=== PATIENT | female | born 1985 | race Caucasian/White ===

== ENCOUNTER 2018-06-11 16:16 | Emergency (ER) | payer SELFPAY ==
[2018-06-11 17:04] LABS: Absolute Lymphocytes (CBC) 1.1 K/uL (0.7-4.9); Absolute Monocytes 0.2 K/uL (0.1-1.3); Absolute Neutrophil 10.6 K/uL (1.8-8.0); Basophils % 0.1 % (0-1.3); Eosinophils % 0.1 % (0-4.4); Hematocrit 38.4 % (36.0-45.0); Lymphocytes % 8.8 % (15.3-44.8); RBC Red Blood Cell Count 4.26 M/uL (3.86-4.86)
[2018-06-11 17:06] LABS: Protime INR 1.03
[2018-06-11 17:32] LABS: ALT/SGPT 13 U/L (12-78); AST/SGOT 11 U/L (15-37); Albumin 3.9 g/dL (3.4-5.0); Alkaline Phosphatase 54 U/L (45-117); BUN Blood Urea Nitrogen 18 mg/dL (7-18); Bicarbonate 24 mmol/L (21-32); Bilirubin Direct < 0.1 mg/dL (0-0.2); Bilirubin Total 0.4 mg/dL (0.2-1.0); Glucose Level 115 mg/dL (74-106); Potassium 4.4 mmol/L (3.5-5.1); Protein, Total 7.7 g/dL (6.4-8.2); Sodium Level 138 mmol/L (136-145)
[2018-06-11 17:48] LABS: Barbiturates NEGATIVE (NEGATIVE); Benzodiazepines POSITIVE (NEGATIVE); Cocaine NEGATIVE (NEGATIVE); METHAMPHETAM NEGATIVE (NEGATIVE); Methadone NEGATIVE (NEGATIVE); Opiates POSITIVE (NEGATIVE); Phencyclidine NEGATIVE (NEGATIVE); THC Cannibis POSITIVE (NEGATIVE)
[2018-06-11 17:50] LABS: Blood Morphology Comment NOT SEEN (NOT SEEN); Platelet Estimate ADEQ; Urine White Blood Cell Casts OK
[2018-06-11 20:36] LABS: Urine Blood TRACE (NEG); Urine Glucose NEGATIVE (NEG); Urine Protein NEGATIVE (NEG); Urine pH 6.5 (5.0-7.0)
[2018-06-11] MEDS ORDERED: DERMABOND SKIN ADHESIVE TOP ONE (22:43)
[2018-06-12] MEDS ORDERED: DERMABOND SKIN ADHESIVE TOP ONE (00:34)
--- NOTE | 2018-06-12 07:23 | EKG ---
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
--- NOTE | 2018-06-12 22:19 | EDPHYS ---
Physician Documentation [facility] Name: Brandy Bailey Age: 33 yrs Sex: Female : 1985 Arrival Date: 06/11/2018 Time: 16:20 Bed 17 Private MD: None, None ED Physician William Galvan HPI: 06/11 17:15 This 33 yrs old Female presents to ER via Ambulatory with complaints of jr8 Suicidal Ideation, Wrist lacerations, Possible Overdose. 17:15 The patient presents to the emergency department with anxiety, depression, a history of jr8 a suicide gesture, where the patient cut wrists, where the patient took pills/medications, benzodiazepines, beta blockers, suicide ideation. Onset: The symptoms/episode began/occurred acutely, today, yesterday. Past psychiatric history: Prior diagnosis: bipolar disorder, depression. Associated signs and symptoms: The patient has no apparent associated signs or symptoms. Severity of symptoms: At their worst the symptoms were moderate in the emergency department the symptoms are unchanged. The patient has experienced similar episodes in the past, a few times. The patient has not recently seen a physician. Patient stated that she has been having racing thoughts about anything and everything. Stated that she cannot control them and now wants to kill herself. Took a bottle of xanax on Tuesday and metoprolol today along with cutting her right wrist to try and kill herself . 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 - Social history:: Smoking status: Patient/guardian denies using tobacco, Patient/guardian denies using alcohol, street drugs. - Ebola Screening: : No symptoms or risks identified at this time. ROS: 17:15 Eyes: Negative for injury, pain, redness, and discharge, ENT: Negative for injury, jr8 pain, and discharge, Neck: Negative for injury, pain, and swelling, Cardiovascular: Negative for chest pain, palpitations, and edema, Respiratory: Negative for shortness of breath, cough, wheezing, and pleuritic chest pain, Abdomen/GI: Negative for abdominal pain, nausea, vomiting, diarrhea, and constipation, Back: Negative for injury and pain, MS/Extremity: Negative for injury and deformity, Neuro: Negative for headache, weakness, numbness, tingling, and seizure. 17:15 Skin: Positive for laceration(s), of the right wrist. 17:15 Psych: Positive for anxiety, depression, suicide gesture, suicidal ideation. jr8 Exam: 17:15 Eyes: Pupils equal round and reactive to light, extra-ocular motions intact. Lids and jr8 lashes normal. Conjunctiva and sclera are non-icteric and not injected. Cornea within normal limits. Periorbital areas with no swelling, redness, or edema. ENT: Nares patent. No nasal discharge, no septal abnormalities noted. Tympanic membranes are normal and external auditory canals are clear. Oropharynx with no redness, swelling, or masses, exudates, or evidence of obstruction, uvula midline. Mucous membranes moist. Neck: Trachea midline, no thyromegaly or masses palpated, and no cervical lymphadenopathy. Supple, full range of motion without nuchal rigidity, or vertebral point tenderness. No Meningismus. Cardiovascular: Regular rate and rhythm with a normal S1 and S2. No gallops, murmurs, or rubs. Normal PMI, no JVD. No pulse deficits. Respiratory: Lungs have equal breath sounds bilaterally, clear to auscultation and percussion. No rales, rhonchi or wheezes noted. No increased work of breathing, no retractions or nasal flaring. Abdomen/GI: Soft, non-tender, with normal bowel sounds. No distension or tympany. No guarding or rebound. No evidence of tenderness throughout. Back: No spinal tenderness. No costovertebral tenderness. Full range of motion. MS/ Extremity: Pulses equal, no cyanosis. Neurovascular intact. Full, normal range of motion. Neuro: Awake and alert, GCS 15, oriented to person, place, time, and situation. Cranial nerves II-XII grossly intact. Motor strength 5/5 in all extremities. Sensory grossly intact. Cerebellar exam normal. Normal gait. 17:15 Skin: multiple lacerations that are mostly superficial noted to right ventral wrist. Bleeding controlled . 17:15 Psych: Behavior/mood is cooperative, anxious, suicidal, depressed, Affect is animated, Oriented to person, place, time, Patient having thoughts of suicide. Plan for suicide is see hpi Judgement / Insight is impaired. Memory is normal. Delusions/hallucinations are not present. Vital Signs: 16:34 BP 95 / 56; Pulse 67; Resp 18 S; Temp 97.0(TE); Pulse Ox 98% on R/A; Weight 58.97 kg aa5 (R); Height 5 ft. 9 in. (175.26 cm) (R); Pain 0/10; 17:30 BP 98 / 64; Pulse 62; Resp 11; Pulse Ox 98% ; bp 18:30 BP 95 / 59; Pulse 58; Resp 12; Pulse Ox 98% ; bp 19:30 BP 94 / 70; Pulse 69; Resp 15; Pulse Ox 99% ; rr5 20:30 BP 95 / 56; Pulse 67; Resp 16; Pulse Ox 99% ; rr5 21:13 BP 94 / 53; Pulse 68; Resp 18; Pulse Ox 97% ; ea 22:15 BP 96 / 58; Pulse 67; Resp 18; Pulse Ox 99% on R/A; ea 23:00 BP 93 / 54; Pulse 62; Resp 16; Pulse Ox 99% ; rr5 02/04 00:00 BP 97 / 64; Pulse 63; Resp 17; Pulse Ox 98% ; rr5 01:00 BP 96 / 60; Pulse 64; Resp 18; Pulse Ox 99% on R/A; ea 02:27 BP 95 / 64; Pulse 60; Resp 18; Pulse Ox 95% on R/A; ea 03:30 BP 96 / 55; Pulse 63; Resp 17 S; Pulse Ox 97% on R/A; cc3 04:03 BP 93 / 53; Pulse 65; Resp 17 S; Pulse Ox 98% on R/A; cc3 05:25 BP 96 / 53; Pulse 65; Resp 18 S; Pulse Ox 98% on R/A; cc3 06:11 BP 108 / 60; Pulse 68; Resp 18 S; Temp 98.2(T); Pulse Ox 100% on R/A; cc3 08:00 BP 108 / 69; Pulse 71; Resp 16; Temp 99.3(O); Pulse Ox 99% on R/A; dh3 12:00 BP 104 / 64; Pulse 57; Resp 16; Temp 97.9(O); Pulse Ox 98% on R/A; dh3 16:00 BP 106 / 67; Pulse 61; Resp 16; Temp 98.4(O); Pulse Ox 99% on R/A; Pain 2/10; dh3 22:00 BP 101 / 61; Pulse 84; Resp 16; Temp 98.9(O); Pulse Ox 98% on R/A; jb4 02 16:34 Body Mass Index 19.20 (58.97 kg, 175.26 cm) aa5 16:00 discomfort from laying in bed dh3 Laceration: 03:01 Wound Repair of 6cm ( 2.4in ) subcutaneous laceration to palmar aspect of left wrist. jr8 Linear shaped.. Distal neuro/vascular/tendon intact. Wound prep: Extensive cleansing with hibiclenz, Wound irrigation by veterinary technician, Wound explored extensively, Copious irrigation. Skin closed with 1 thin layer Adhesive skin closure using Dermabond. Patient tolerated well. 03:01 Wound Repair of 6cm ( 2.4in ) subcutaneous laceration to palmar aspect of left wrist. jr8 Linear shaped.. Minimal bleeding noted.. Distal neuro/vascular/tendon intact. Wound prep: Extensive cleansing with hibiclenz, Wound irrigation by veterinary technician, Wound explored extensively, Copious irrigation. Skin closed with 1 thin layer Adhesive skin closure using Dermabond. Patient tolerated well. 03:01 Wound Repair of 6cm ( 2.4in ) subcutaneous laceration to palmar aspect of left wrist. jr8 Linear shaped.. Distal neuro/vascular/tendon intact. Wound prep: Extensive cleansing with hibiclenz, Wound irrigation by veterinary technician, Wound explored extensively, Copious irrigation. Skin closed with 1 thin layer Adhesive skin closure using Dermabond. Patient tolerated well. 03:01 Wound Repair of 5cm ( 2.0in ) subcutaneous laceration to palmar aspect of left wrist. jr8 Linear shaped.. Distal neuro/vascular/tendon intact. Wound prep: Extensive cleansing with hibiclenz, Wound irrigation by veterinary technician, Wound explored extensively, Copious irrigation. Skin closed with 1 thin layer Adhesive skin closure using Dermabond. Patient tolerated well. 03:01 Wound Repair of 6cm ( 2.4in ) subcutaneous laceration to palmar aspect of left wrist. jr8 Linear shaped.. Distal neuro/vascular/tendon intact. Wound prep: Extensive cleansing with hibiclenz, Wound irrigation by veterinary technician, Wound explored extensively, Copious irrigation. Skin closed with 5 shiv Shiv using staple gun. Patient tolerated well. MDM: 06/11 16:36 Patient medically screened. 8 06/12 03:07 Data reviewed: vital signs, nurses notes, lab test result(s), EKG. Data interpreted: 8 Pulse oximetry: on room air is 95 %. Interpretation: normal. Counseling: I had a detailed discussion with the patient and/or guardian regarding: the historical points, exam findings, and any diagnostic results supporting the discharge/admit diagnosis, lab results. ED course: Patient doing well. VSS. Awaiting transfer to psych facility . 07:15 ED course: Pt sleeping comfortably, no acute distress, normal vitals, no signs of rn distress or signs of beta derek overdose at this time. Awaiting psychiatric transfer. . 22:15 ED course: pt not suicidal, will follow up, has boyfriend here to support her, he janeth agrees with the plan to follow up. 06/11 16:37 Order name: Acetaminophen; Complete Time: 17:48 [facility] 06/11 16:37 Order name: Basic Metabolic Panel; Complete Time: 17:48 [facility] 06/11 16:37 Order name: CBC with Diff; Complete Time: 17:53 [facility] 06/11 16:37 Order name: ETOH Level; Complete Time: 17:38 8 06/11 16:37 Order name: Hepatic Function; Complete Time: 17:48 [facility] 06/11 16:37 Order name: PT-INR; Complete Time: 17:10 8 06/11 16:37 Order name: Ptt, Activated; Complete Time: 17:10 [facility] 06/11 16:37 Order name: Salicylate; Complete Time: 17:48 [facility] 06/11 16:37 Order name: Urine Drug Screen; Complete Time: 17:53 8 06/11 16:37 Order name: EKG; Complete Time: 16:38 8 06/11 17:09 Order name: CBC Smear Scan; Complete Time: 17:53 [facility] 06/11 17:48 Order name: Urine Dipstick--Ancillary (enter results); Complete Time: 20:38 06/11 17:48 Order name: Urine --Ancillary (enter results); Complete Time: 20:38 06/12 05:50 Order name: Diet Regular; Complete Time: 05:51 rr5 06/11 16:37 Order name: Urine Test (obtain specimen); Complete Time: 19:13 8 06/11 16:37 Order name: EKG - Nurse/Tech; Complete Time: 17:14 06/11 16:37 Order name: IV Saline Lock; Complete Time: 17:14 8 06/11 16:37 Order name: Labs collected and sent; Complete Time: 17:14 06/11 16:37 Order name: Urine Dipstick-Ancillary (obtain specimen); Complete Time: 19:13 8 06/11 22:32 Order name: Dermabond; Complete Time: 22:34 ea 06/12 08:20 Order name: Diet Regular; Complete Time: 08:21 dh3 06/12 10:26 Order name: Diet Regular; Complete Time: 10:27 tw2 06/12 15:38 Order name: Diet Regular; Complete Time: 15:39 dh3 Administered Medications: No medications were administered Disposition: 22:15 Co-signature as Attending Physician, William Galvan MD I agree with the assessment and janeth plan of care. Disposition: 06/12/18 22:17 Discharged to Home. Impression: Bipolar disorder, Suicidal ideations - resolved. - Condition is Stable. - Discharge Instructions: Laceration Care, Adult, Bipolar Disorder, Suicidal Feelings: How to Help Yourself, Helping Someone Who is Suicidal, Laceration Care, Adult, [id number], Stress and Stress Management. - Medication Reconciliation Form, Thank You Letter, Antibiotic Education, Prescription Opioid Use, SBAR form form. - Follow up: Private Physician; When: 1 - 2 days; Reason: Recheck today's complaints, Continuance of care, Re-evaluation by your physician. - Problem is new. - Symptoms have improved. Signatures: Dispatcher [employer] William Loredo MD MD cha Nieto, Roman, MD MD rn Calderon, Audri, RN RN aa5 Dez Higgins PA PA jr8 Patel Sahh RN RN jb4 Olivia Tucker RN RN ea Corrections: (The following items were deleted from the chart) 22:42 22:17 06/12/2018 22:17 Discharged to Home. Impression: Bipolar disorder; Suicidal jb4 ideations - resolved. Condition is Stable. Forms are SBAR form, Medication Reconciliation Form, Thank You Letter, Antibiotic Education, Prescription Opioid Use. Follow up: Private Physician; When: 1 - 2 days; Reason: Recheck today's complaints, Continuance of care, Re-evaluation by your physician. Problem is new. Symptoms have improved. janeth
--- NOTE | 2018-06-12 22:19 | ER ---
Nurse's Notes [facility] Name: Brandy Bailey Age: 33 yrs Sex: Female : 1985 Arrival Date: 06/11/2018 Time: 16:20 Bed 17 Private MD: None, None Diagnosis: Bipolar disorder;Suicidal ideations-resolved Presentation: 06/11 16:27 Presenting complaint: Patient states: "I took a whole bottle of my dad's metoprolol aa5 this morning". Pt's boyfriend states "she also took 60 pills of alprazolam ER on Tuesday". Pt reports suicidal ideations. Pt reports cutting herself to right wrist today. 16:27 Transition of care: patient was not received from another setting of care. Onset of aa5 symptoms was June 11, 2018. Risk Assessment: Do you want to hurt yourself or someone else? Patient reports desire/thoughts of hurting themselves or someone else. Provider notified. Initial Sepsis Screen: Does the patient meet any 2 criteria? No. Patient's initial sepsis screen is negative. Does the patient have a suspected source of infection? No. Patient's initial sepsis screen is negative. Care prior to arrival: None. 16:27 Method Of Arrival: Ambulatory aa5 16:27 Acuity: ANA 2 aa5 Triage Assessment: 17:32 General: Appears distressed, comfortable, Behavior is cooperative, appropriate for age, bp anxious, crying. Pain: Denies pain. 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 - Social history:: Smoking status: Patient/guardian denies using tobacco, Patient/guardian denies using alcohol, street drugs. - Ebola Screening: : No symptoms or risks identified at this time. Screenin:43 Abuse screen: Denies threats or abuse. Denies injuries from another. Nutritional bp screening: No deficits noted. Tuberculosis screening: No symptoms or risk factors identified. Fall Risk None identified. Assessment: 16:30 General: Appears distressed, comfortable, slender, Behavior is cooperative, appropriate bp for age, anxious, crying. Pain: Denies pain. Neuro: Level of Consciousness is awake, obeys commands, lethargic, Oriented to person, place, time, situation, Appropriate for age. Cardiovascular: Rhythm is sinus rhythm. Respiratory: Airway is patent Respiratory effort is even, unlabored, Respiratory pattern is regular, symmetrical. GI: No signs and/or symptoms were reported involving the gastrointestinal system. : No signs and/or symptoms were reported regarding the genitourinary system. EENT: No deficits noted. Derm: No deficits noted. Musculoskeletal: Circulation, motion, and sensation intact. Range of motion: intact in all extremities. Injury Description: Laceration sustained to palmar aspect of left wrist. 17:30 Reassessment: PT REMAINS ON COLLISION MECHANIC, LETHARGIC. bp 17:51 Reassessment: CONTACT WITH POISON CONTROLPETE \\Cristina\\ MONIKA. RECOMMENDS FLUIDS AND bp SUPPORTIVE CARE WITH PRECAUTION FOR HYPOTENSION, BRADYCARDIA OR COMPUTER FORENSIC SPECIALIST DEPRESSION. . POISON CONTROL RECOMMENDS OBS FOR 8 HOURS OR UNTIL ASYMPTOMATIC. 19:00 Reassessment: PT SLEEPING, REMAINS NORMO-TENSIVE ON MONITOR. bp 19:10 General: Appears in no apparent distress. comfortable, Behavior is calm, cooperative, rr5 appropriate for age. Pain: Denies pain. 19:10 Reassessment: sitter at bedside. Neuro: Level of Consciousness is awake, alert, obeys rr5 commands, Oriented to person, place, time, situation, Appropriate for age. Cardiovascular: Capillary refill < 3 seconds Patient's skin is warm and dry. Rhythm is sinus rhythm. Respiratory: Airway is patent Respiratory effort is even, unlabored, Respiratory pattern is regular, symmetrical. GI: Patient currently denies abdominal pain. : No signs and/or symptoms were reported regarding the genitourinary system. EENT: No signs and/or symptoms were reported regarding the EENT system. Derm: Skin is intact, Skin temperature is warm cut wound on right wrist noted. Musculoskeletal: Circulation, motion, and sensation intact. Range of motion: intact in all extremities. 20:59 Reassessment: Patient and/or family updated on plan of care and expected duration. Pain ea level reassessed. Patient is alert, oriented x 3, equal unlabored respirations, skin warm/dry/pink. family remains at bedside. 21:58 Reassessment: Patient and/or family updated on plan of care and expected duration. Pain ea level reassessed. Pt resting with eyes closed, respirations even and unlabored. Chest expansions even and symmetrical. no s/s of pain or discomfort. Pt remains on registered nurse cardiac, family remains at bedside. 22:11 Reassessment: Poison control called for updates on pt's status. No new recommendations ea at this time. 22:38 Reassessment: Patient and/or family updated on plan of care and expected duration. Pain ea level reassessed. Patient is alert, oriented x 3, equal unlabored respirations, skin warm/dry/pink. Family at bedside. 23:15 Reassessment: Patient appears in no apparent distress at this time. Patient is alert, rr5 oriented x 3, equal unlabored respirations, skin warm/dry/pink. no complaints made. wound cleaning done by instructional technology facilitatoryoshi cool. 06/12 00:12 Reassessment: Patient and/or family updated on plan of care and expected duration. Pain ea level reassessed. Patient is alert, oriented x 3, equal unlabored respirations, skin warm/dry/pink. Family at bedside. 01:30 Reassessment: Patient and/or family updated on plan of care and expected duration. Pain ea level reassessed. Patient is alert, oriented x 3, equal unlabored respirations, skin warm/dry/pink. Family member at bedside. 02:26 Reassessment: Patient and/or family updated on plan of care and expected duration. Pain ea level reassessed. Patient is alert, oriented x 3, equal unlabored respirations, skin warm/dry/pink. Family member remains at bedside. 03:20 Reassessment: Patient appears in no apparent distress at this time. Patient and/or cc3 family updated on plan of care and expected duration. Pain level reassessed. Patient is alert, oriented x 3, equal unlabored respirations, skin warm/dry/pink. Received from trauma pod as a case of suicidal ideation with multiple wrist lacerations. With IV cannula gauge 22 at the left ACV saline locked. Family member at bedside. 04:07 Reassessment: Patient appears in no apparent distress at this time. Patient and/or cc3 family updated on plan of care and expected duration. Pain level reassessed. Patient is alert, oriented x 3, equal unlabored respirations, skin warm/dry/pink. family member at bedside. 05:52 Reassessment: Patient appears in no apparent distress at this time. Patient and/or cc3 family updated on plan of care and expected duration. Pain level reassessed. Patient is alert, oriented x 3, equal unlabored respirations, skin warm/dry/pink. Family member at bedside. 06:13 Reassessment: Patient appears in no apparent distress at this time. Patient and/or cc3 family updated on plan of care and expected duration. Pain level reassessed. Patient is alert, oriented x 3, equal unlabored respirations, skin warm/dry/pink. Family member at bedside. 07:11 Reassessment: Patient appears in no apparent distress at this time. Patient and/or tw2 family updated on plan of care and expected duration. Pain level reassessed. Patient is alert, oriented x 3, equal unlabored respirations, skin warm/dry/pink. pt appears to be sleeping at this time. 08:11 Reassessment: Patient appears in no apparent distress at this time. Patient and/or tw2 family updated on plan of care and expected duration. Pain level reassessed. Patient is alert, oriented x 3, equal unlabored respirations, skin warm/dry/pink. 09:11 Reassessment: Patient appears in no apparent distress at this time. Patient and/or tw2 family updated on plan of care and expected duration. Pain level reassessed. Patient is alert, oriented x 3, equal unlabored respirations, skin warm/dry/pink. 10:11 Reassessment: Patient appears in no apparent distress at this time. Patient and/or tw2 family updated on plan of care and expected duration. Pain level reassessed. Patient is alert, oriented x 3, equal unlabored respirations, skin warm/dry/pink. pt has visitor present at this time. 10:48 Reassessment: [facility] employee here for mental health evaluation. ss 10:54 Reassessment: [facility] business services sales representative at bedside at this time. tw2 11:11 Reassessment: Patient appears in no apparent distress at this time. Patient and/or tw2 family updated on plan of care and expected duration. Pain level reassessed. Patient is alert, oriented x 3, equal unlabored respirations, skin warm/dry/pink. 12:11 Reassessment: Patient appears in no apparent distress at this time. Patient and/or tw2 family updated on plan of care and expected duration. Pain level reassessed. Patient is alert, oriented x 3, equal unlabored respirations, skin warm/dry/pink. 13:11 Reassessment: Patient appears in no apparent distress at this time. No changes from tw2 previously documented assessment. Patient and/or family updated on plan of care and expected duration. Pain level reassessed. Patient is alert, oriented x 3, equal unlabored respirations, skin warm/dry/pink. 14:11 Reassessment: Patient appears in no apparent distress at this time. No changes from tw2 previously documented assessment. Patient and/or family updated on plan of care and expected duration. Pain level reassessed. Patient is alert, oriented x 3, equal unlabored respirations, skin warm/dry/pink. 15:11 Reassessment: Patient appears in no apparent distress at this time. No changes from tw2 previously documented assessment. Patient and/or family updated on plan of care and expected duration. Pain level reassessed. Patient is alert, oriented x 3, equal unlabored respirations, skin warm/dry/pink. 16:11 Reassessment: Patient appears in no apparent distress at this time. No changes from tw2 previously documented assessment. Patient and/or family updated on plan of care and expected duration. Pain level reassessed. Patient is alert, oriented x 3, equal unlabored respirations, skin warm/dry/pink. 17:11 Reassessment: Patient appears in no apparent distress at this time. No changes from tw2 previously documented assessment. Patient and/or family updated on plan of care and expected duration. Pain level reassessed. Patient is alert, oriented x 3, equal unlabored respirations, skin warm/dry/pink. 18:30 Reassessment: Patient appears in no apparent distress at this time. No changes from tw2 previously documented assessment. Patient and/or family updated on plan of care and expected duration. Pain level reassessed. Patient is alert, oriented x 3, equal unlabored respirations, skin warm/dry/pink. 19:00 Reassessment: Patient appears in no apparent distress at this time. Patient and/or jb4 family updated on plan of care and expected duration. Pain level reassessed. Patient is alert, oriented x 3, equal unlabored respirations, skin warm/dry/pink. 20:00 Reassessment: Patient appears in no apparent distress at this time. Patient and/or jb4 family updated on plan of care and expected duration. Pain level reassessed. Patient is alert, oriented x 3, equal unlabored respirations, skin warm/dry/pink. 21:00 Reassessment: Patient appears in no apparent distress at this time. Patient and/or jb4 family updated on plan of care and expected duration. Pain level reassessed. Patient is alert, oriented x 3, equal unlabored respirations, skin warm/dry/pink. 22:00 Reassessment: Patient appears in no apparent distress at this time. Patient and/or jb4 family updated on plan of care and expected duration. Pain level reassessed. Patient is alert, oriented x 3, equal unlabored respirations, skin warm/dry/pink. Psych: 06/11 16:30 Subjective: Patient's mood is sad, Delusions are denied, Hallucinations are denied bp Having thoughts of suicide. Plan for suicide is OVERDOSE. Objective: Patient is cooperative, using poor eye contact, Speech is soft, Affect is appropriate, Patient has mutilated themselves by SUPERFICIAL WRIST LAC. Interventions: Removed personal items and placed in bag. Patient placed in hospital gown. Searched person for dangerous items. Urine collected and sent for urine drug test. Suicide Risk Assessment: Sad Person Scale: Sex of patient: Female: Score 0 points. Age of patient: Score 0 point if patient falls outside of specified age parameters. Depression: Score 1 point if signs of depression are present. Previous Attempt: Score 1 point if patient has previously attempted suicide. Substance Abuse: Score 0 point if patient does not abuse alcohol or drugs. Rational Thinking: Score 0 point if patient has rational thinking. Social Support: Score 0 if social support is present/available. Organized Plan: Score 1 point if patient had a plan in place. Relationship: Score 0 point if patient has a spouse or domestic partner. Chronic Sickness: Score 0 point if patient does not have a chronic illness, debilitating, or severe disorder. TOTAL POINTS: If total points are 0-2, proposed clinical action is to send home with follow-up. Safety Checks: Personal items have been removed. Door is open. Visitors are present. Pt denies substance abuse. Commitment: Patient will be a voluntary commitment. 16:45 Safety Checks: Personal items have been removed. Door is open. Visitors are present. bp 17:00 Safety Checks: Personal items have been removed. Door is open. Visitors are present. bp 17:15 Safety Checks: Personal items have been removed. Door is open. Visitors are present. bp 17:30 Safety Checks: Personal items have been removed. Door is open. Visitors are present. bp 17:45 Safety Checks: Personal items have been removed. Door is open. Visitors are present. bp Safety Checks: Personal items have been removed. Door is open. Visitors are present. 18:00 Safety Checks: Personal items have been removed. Door is open. Visitors are present. bp 18:15 Safety Checks: Personal items have been removed. Door is open. Visitors are present. bp 18:30 Safety Checks: Personal items have been removed. Door is open. Visitors are present. bp 18:45 Safety Checks: Personal items have been removed. Door is open. Visitors are present. bp 19:00 Safety Checks: Personal items have been removed. Door is open. Visitors are present. bp Vital Signs: 16:34 BP 95 / 56; Pulse 67; Resp 18 S; Temp 97.0(TE); Pulse Ox 98% on R/A; Weight 58.97 kg aa5 (R); Height 5 ft. 9 in. (175.26 cm) (R); Pain 0/10; 17:30 BP 98 / 64; Pulse 62; Resp 11; Pulse Ox 98% ; bp 18:30 BP 95 / 59; Pulse 58; Resp 12; Pulse Ox 98% ; bp 19:30 BP 94 / 70; Pulse 69; Resp 15; Pulse Ox 99% ; rr5 20:30 BP 95 / 56; Pulse 67; Resp 16; Pulse Ox 99% ; rr5 21:13 BP 94 / 53; Pulse 68; Resp 18; Pulse Ox 97% ; ea 22:15 BP 96 / 58; Pulse 67; Resp 18; Pulse Ox 99% on R/A; ea 23:00 BP 93 / 54; Pulse 62; Resp 16; Pulse Ox 99% ; rr5 02/04 00:00 BP 97 / 64; Pulse 63; Resp 17; Pulse Ox 98% ; rr5 01:00 BP 96 / 60; Pulse 64; Resp 18; Pulse Ox 99% on R/A; ea 02:27 BP 95 / 64; Pulse 60; Resp 18; Pulse Ox 95% on R/A; ea 03:30 BP 96 / 55; Pulse 63; Resp 17 S; Pulse Ox 97% on R/A; cc3 04:03 BP 93 / 53; Pulse 65; Resp 17 S; Pulse Ox 98% on R/A; cc3 05:25 BP 96 / 53; Pulse 65; Resp 18 S; Pulse Ox 98% on R/A; cc3 06:11 BP 108 / 60; Pulse 68; Resp 18 S; Temp 98.2(T); Pulse Ox 100% on R/A; cc3 08:00 BP 108 / 69; Pulse 71; Resp 16; Temp 99.3(O); Pulse Ox 99% on R/A; dh3 12:00 BP 104 / 64; Pulse 57; Resp 16; Temp 97.9(O); Pulse Ox 98% on R/A; dh3 16:00 BP 106 / 67; Pulse 61; Resp 16; Temp 98.4(O); Pulse Ox 99% on R/A; Pain 2/10; dh3 22:00 BP 101 / 61; Pulse 84; Resp 16; Temp 98.9(O); Pulse Ox 98% on R/A; jb4 06/11 16:34 Body Mass Index 19.20 (58.97 kg, 175.26 cm) aa5 16:00 discomfort from laying in bed 3 ED Course: 06/11 16:20 Patient arrived in ED. mr 16:20 None, None is Private Physician. mr 16:28 Arm band placed on. aa5 16:30 Patient has correct armband on for positive identification. Bed in low position. Call bp light in reach. Side rails up X2. Adult w/ patient. 16:30 Inserted saline lock: 20 gauge in left antecubital area, using aseptic technique. Blood bp collected. 16:33 Triage completed. aa5 16:36 Dez Higgins PA is PHCP. jr8 16:36 William Galvan MD is Attending Physician. jr8 16:37 Steve Brower, BERNA is Primary Nurse. bp 19:00 Safety Checks: Personal items have been removed. The door is open or patient has been ea placed in a hallway bed/chair. A family member and/or friend is present and encouraged to stay. Sitter present at this time. 19:15 Safety Checks: Personal items have been removed. The door is open or patient has been ea placed in a hallway bed/chair. A family member and/or friend is present and encouraged to stay. Sitter present at this time. 19:30 Safety Checks: Personal items have been removed. The door is open or patient has been ea placed in a hallway bed/chair. A family member and/or friend is present and encouraged to stay. Sitter present at this time. 19:45 Safety Checks: Personal items have been removed. The door is open or patient has been ea placed in a hallway bed/chair. A family member and/or friend is present and encouraged to stay. Sitter present at this time. 20:00 Safety Checks: Personal items have been removed. The door is open or patient has been ea placed in a hallway bed/chair. A family member and/or friend is present and encouraged to stay. Sitter present at this time. 20:15 Safety Checks: Personal items have been removed. The door is open or patient has been ea placed in a hallway bed/chair. A family member and/or friend is present and encouraged to stay. Sitter present at this time. 20:30 Safety Checks: Personal items have been removed. The door is open or patient has been ea placed in a hallway bed/chair. A family member and/or friend is present and encouraged to stay. Sitter present at this time. 20:45 Safety Checks: Personal items have been removed. The door is open or patient has been ea placed in a hallway bed/chair. A family member and/or friend is present and encouraged to stay. Sitter present at this time. 21:00 Safety Checks: Personal items have been removed. The door is open or patient has been ea placed in a hallway bed/chair. A family member and/or friend is present and encouraged to stay. Sitter present at this time. 21:15 Safety Checks: Personal items have been removed. The door is open or patient has been ea placed in a hallway bed/chair. A family member and/or friend is present and encouraged to stay. Sitter present at this time. 21:30 Safety Checks: Personal items have been removed. The door is open or patient has been ea placed in a hallway bed/chair. A family member and/or friend is present and encouraged to stay. Sitter present at this time. 21:45 Safety Checks: Personal items have been removed. The door is open or patient has been ea placed in a hallway bed/chair. A family member and/or friend is present and encouraged to stay. Sitter present at this time. 21:47 faxed patient's clinicals to all of the [facility]. mw2 22:00 Safety Checks: Personal items have been removed. The door is open or patient has been ea placed in a hallway bed/chair. A family member and/or friend is present and encouraged to stay. Sitter present at this time. 22:15 Safety Checks: Personal items have been removed. The door is open or patient has been ea placed in a hallway bed/chair. A family member and/or friend is present and encouraged to stay. Sitter present at this time. 22:30 Safety Checks: Personal items have been removed. The door is open or patient has been ea placed in a hallway bed/chair. A family member and/or friend is present and encouraged to stay. Sitter present at this time. 22:45 Safety Checks: Personal items have been removed. The door is open or patient has been rr5 placed in a hallway bed/chair. A family member and/or friend is present and encouraged to stay. Sitter present at this time. 23:00 Safety Checks: Personal items have been removed. The door is open or patient has been rr5 placed in a hallway bed/chair. A family member and/or friend is present and encouraged to stay. Sitter present at this time. 23:15 Safety Checks: Personal items have been removed. The door is open or patient has been rr5 placed in a hallway bed/chair. A family member and/or friend is present and encouraged to stay. Sitter present at this time. 23:30 Safety Checks: Personal items have been removed. The door is open or patient has been rr5 placed in a hallway bed/chair. A family member and/or friend is present and encouraged to stay. Sitter present at this time. 23:45 Safety Checks: Personal items have been removed. The door is open or patient has been rr5 placed in a hallway bed/chair. A family member and/or friend is present and encouraged to stay. Sitter present at this time. 06/12 00:00 Safety Checks: Personal items have been removed. The door is open or patient has been rr5 placed in a hallway bed/chair. A family member and/or friend is present and encouraged to stay. Sitter present at this time. 00:15 Safety Checks: Personal items have been removed. The door is open or patient has been ea placed in a hallway bed/chair. A family member and/or friend is present and encouraged to stay. Sitter present at this time. 00:30 Safety Checks: Personal items have been removed. The door is open or patient has been ea placed in a hallway bed/chair. A family member and/or friend is present and encouraged to stay. Sitter present at this time. 00:45 Safety Checks: Personal items have been removed. The door is open or patient has been ea placed in a hallway bed/chair. A family member and/or friend is present and encouraged to stay. Sitter present at this time. 01:00 Safety Checks: Personal items have been removed. The door is open or patient has been ea placed in a hallway bed/chair. A family member and/or friend is present and encouraged to stay. Sitter present at this time. 01:15 Safety Checks: Personal items have been removed. The door is open or patient has been ea placed in a hallway bed/chair. A family member and/or friend is present and encouraged to stay. Sitter present at this time. 01:30 Safety Checks: Personal items have been removed. The door is open or patient has been ea placed in a hallway bed/chair. A family member and/or friend is present and encouraged to stay. Sitter present at this time. 01:45 Safety Checks: Personal items have been removed. The door is open or patient has been ea placed in a hallway bed/chair. A family member and/or friend is present and encouraged to stay. Sitter present at this time. 02:00 Safety Checks: Personal items have been removed. The door is open or patient has been ea placed in a hallway bed/chair. A family member and/or friend is present and encouraged to stay. Sitter present at this time. 02:15 Safety Checks: Personal items have been removed. The door is open or patient has been ea placed in a hallway bed/chair. A family member and/or friend is present and encouraged to stay. Sitter present at this time. 02:30 Safety Checks: Personal items have been removed. The door is open or patient has been rr5 placed in a hallway bed/chair. A family member and/or friend is present and encouraged to stay. Sitter present at this time. 02:45 Safety Checks: Personal items have been removed. The door is open or patient has been rr5 placed in a hallway bed/chair. A family member and/or friend is present and encouraged to stay. Sitter present at this time. 03:00 Safety Checks: Personal items have been removed. The door is open or patient has been rr5 placed in a hallway bed/chair. A family member and/or friend is present and encouraged to stay. Sitter present at this time. 03:05 Assist provider with laceration repair on dorsal aspect of right forearm that was ea between 2.6 to 7.5 cm Set up tray. Performed by Dez LANDEROS Dressed with non adherent dressing wrapped in kerlix Patient tolerated well. first lac proximal repaired with staple method x [address], derma moctezuma used on rest of the lacerations x 4. 03:15 Safety Checks: Personal items have been removed. The door is open or patient has been rr5 placed in a hallway bed/chair. A family member and/or friend is present and encouraged to stay. Sitter present at this time. 03:30 Safety checks: Items removed: yes. Door open/sign placed on door: yes. Family/friend ar5 present: yes. Sitter present: Yes. 03:31 Breanne from [facility] called to check on the status of patient. case #[id number]. [email or web address] 03:45 Safety checks: Items removed: yes. Door open/sign placed on door: yes. Family/friend ar5 present: yes. Sitter present: Yes. 04:00 Safety checks: Items removed: yes. Door open/sign placed on door: yes. Family/friend ar5 present: yes. Sitter present: Yes. 04:15 Safety checks: Items removed: yes. Door open/sign placed on door: yes. Family/friend ar5 present: yes. Sitter present: Yes. 04:30 Safety checks: Items removed: yes. Door open/sign placed on door: yes. Family/friend ar5 present: yes. Sitter present: Yes. 04:45 Safety checks: Items removed: yes. Door open/sign placed on door: yes. Family/friend ar5 present: yes. Sitter present: Yes. 05:00 Safety checks: Items removed: yes. Door open/sign placed on door: yes. Family/friend ar5 present: yes. Sitter present: Yes. 05:15 Safety checks: Items removed: yes. Door open/sign placed on door: yes. Family/friend ar5 present: yes. Sitter present: Yes. 05:30 Safety checks: Items removed: yes. Door open/sign placed on door: yes. Family/friend ar5 present: yes. Sitter present: Yes. 05:45 Safety checks: Items removed: yes. Door open/sign placed on door: yes. Family/friend ar5 present: yes. Sitter present: Yes. 06:00 Safety checks: Items removed: yes. Door open/sign placed on door: yes. Family/friend ar5 present: yes. Sitter present: Yes. 06:15 Safety checks: Items removed: yes. Door open/sign placed on door: yes. Family/friend ar5 present: yes. Sitter present: Yes. 06:30 Safety checks: Items removed: yes. Door open/sign placed on door: yes. Family/friend ar5 present: yes. Sitter present: Yes. 06:45 Safety checks: Items removed: yes. Door open/sign placed on door: yes. Family/friend ar5 present: yes. Sitter present: Yes. 07:00 Safety Checks: Personal items have been removed. The door is open or patient has been tw2 placed in a hallway bed/chair. A family member and/or friend is present and encouraged to stay. Sitter present at this time. 07:00 Report given to BERNA Michele. cc3 07:10 Primary Nurse role handed off by Steve Brower RN tw2 07:10 Emily Clark RN is Primary Nurse. tw2 07:15 Safety Checks: Personal items have been removed. The door is open or patient has been tw2 placed in a hallway bed/chair. A family member and/or friend is present and encouraged to stay. Sitter present at this time. 07:30 Safety checks: Items removed: yes. Door open/sign placed on door: yes. Family/friend dh3 present: no. Sitter present: Yes. 07:45 Safety checks: Items removed: yes. Door open/sign placed on door: yes. Family/friend dh3 present: no. Sitter present: Yes. 08:00 Safety checks: Items removed: yes. Door open/sign placed on door: yes. Family/friend dh3 present: no. Sitter present: Yes. 08:15 Safety Checks: Personal items have been removed. The door is open or patient has been tw2 placed in a hallway bed/chair. A family member and/or friend is present and encouraged to stay. Sitter present at this time. 08:15 Safety checks: Items removed: yes. Door open/sign placed on door: yes. Family/friend dh3 present: no. Sitter present: Yes. 08:30 Safety Checks: Personal items have been removed. The door is open or patient has been tw2 placed in a hallway bed/chair. A family member and/or friend is present and encouraged to stay. Sitter present at this time. 08:30 Safety checks: Items removed: yes. Door open/sign placed on door: yes. Family/friend dh3 present: no. Sitter present: Yes. 08:45 Safety checks: Items removed: yes. Door open/sign placed on door: yes. Family/friend dh3 present: no. Sitter present: Yes. 09:00 Safety checks: Items removed: yes. Door open/sign placed on door: yes. Family/friend dh3 present: no. Sitter present: Yes. 09:15 Safety checks: Items removed: yes. Door open/sign placed on door: yes. Family/friend dh3 present: no. Sitter present: Yes. 09:30 Safety checks: Items removed: yes. Door open/sign placed on door: yes. Family/friend dh3 present: no. Sitter present: Yes. 09:45 Safety checks: Items removed: yes. Door open/sign placed on door: yes. Family/friend dh3 present: yes. Family/friends encouraged to stay with patient. Sitter present: Yes. 10:00 Safety checks: Items removed: yes. Door open/sign placed on door: yes. Family/friend dh3 present: yes. Family/friends encouraged to stay with patient. Sitter present: Yes. 10:15 Safety checks: Items removed: yes. Door open/sign placed on door: yes. Family/friend dh3 present: yes. Family/friends encouraged to stay with patient. Sitter present: Yes. 10:30 Safety checks: Items removed: yes. Door open/sign placed on door: yes. Family/friend dh3 present: yes. Family/friends encouraged to stay with patient. Sitter present: Yes. 10:45 Safety checks: Items removed: yes. Door open/sign placed on door: yes. Family/friend dh3 present: yes. Family/friends encouraged to stay with patient. Sitter present: Yes. 11:00 Safety checks: Items removed: yes. Door open/sign placed on door: yes. Family/friend dh3 present: no. Sitter present: Yes. 11:15 Safety checks: Items removed: yes. Door open/sign placed on door: yes. Family/friend dh3 present: no. Sitter present: Yes. 11:30 Safety checks: Items removed: yes. Door open/sign placed on door: yes. Family/friend dh3 present: no. Sitter present: Yes. 11:45 Safety checks: Items removed: yes. Door open/sign placed on door: yes. Family/friend dh3 present: yes. Family/friends encouraged to stay with patient. Sitter present: Yes. 12:00 Safety checks: Items removed: yes. Door open/sign placed on door: yes. Family/friend dh3 present: yes. Family/friends encouraged to stay with patient. Sitter present: Yes. 12:15 Safety checks: Items removed: yes. Door open/sign placed on door: yes. Family/friend dh3 present: yes. Family/friends encouraged to stay with patient. Sitter present: Yes. 12:30 Safety checks: Items removed: yes. Door open/sign placed on door: yes. Family/friend dh3 present: yes. Family/friends encouraged to stay with patient. Sitter present: Yes. 12:45 Safety checks: Items removed: yes. Door open/sign placed on door: yes. Family/friend dh3 present: yes. Family/friends encouraged to stay with patient. Sitter present: Yes. 13:00 Safety checks: Items removed: yes. Door open/sign placed on door: yes. Family/friend dh3 present: yes. Family/friends encouraged to stay with patient. Sitter present: Yes. 13:15 Safety checks: Items removed: yes. Door open/sign placed on door: yes. Family/friend dh3 present: no. Sitter present: Yes. 13:30 Safety checks: Items removed: yes. Door open/sign placed on door: yes. Family/friend dh3 present: yes. Family/friends encouraged to stay with patient. Sitter present: Yes. 13:45 Safety checks: Items removed: yes. Door open/sign placed on door: yes. Family/friend dh3 present: yes. Family/friends encouraged to stay with patient. Sitter present: Yes. 14:00 Safety checks: Items removed: yes. Door open/sign placed on door: yes. Family/friend dh3 present: yes. Family/friends encouraged to stay with patient. Sitter present: Yes. 14:15 Safety checks: Items removed: yes. Door open/sign placed on door: yes. Family/friend dh3 present: yes. Family/friends encouraged to stay with patient. Sitter present: Yes. 14:20 spoke with [facility], chart is still under review. 14:30 Safety checks: Items removed: yes. Door open/sign placed on door: yes. Family/friend dh3 present: yes. Family/friends encouraged to stay with patient. Sitter present: Yes. 14:45 Safety checks: Items removed: yes. Door open/sign placed on door: yes. Family/friend dh3 present: yes. Family/friends encouraged to stay with patient. Sitter present: Yes. 15:00 Safety checks: Items removed: yes. Door open/sign placed on door: yes. Family/friend dh3 present: yes. Family/friends encouraged to stay with patient. Sitter present: Yes. 15:15 Safety checks: Items removed: yes. Door open/sign placed on door: yes. Family/friend dh3 present: yes. Family/friends encouraged to stay with patient. Sitter present: Yes. 15:30 Safety checks: Items removed: yes. Door open/sign placed on door: yes. Family/friend dh3 present: yes. Family/friends encouraged to stay with patient. Sitter present: Yes. 15:45 Safety checks: Items removed: yes. Door open/sign placed on door: yes. Family/friend dh3 present: yes. Family/friends encouraged to stay with patient. Sitter present: Yes. 16:00 Safety checks: Items removed: yes. Door open/sign placed on door: yes. Family/friend dh3 present: yes. Family/friends encouraged to stay with patient. Sitter present: Yes. 16:15 Safety checks: Items removed: yes. Door open/sign placed on door: yes. Family/friend dh3 present: yes. Family/friends encouraged to stay with patient. Sitter present: Yes. 16:30 Safety checks: Items removed: yes. Door open/sign placed on door: yes. Family/friend dh3 present: yes. Family/friends encouraged to stay with patient. Sitter present: Yes. 16:45 Safety checks: Items removed: yes. Door open/sign placed on door: yes. Family/friend dh3 present: yes. Family/friends encouraged to stay with patient. Sitter present: Yes. 16:58 refaxed the chart to [facility], talked to vijaya, pt is on waiting list. bd 17:00 Safety checks: Items removed: yes. Door open/sign placed on door: yes. Family/friend dh3 present: yes. Family/friends encouraged to stay with patient. Sitter present: Yes. 17:15 Safety checks: Items removed: yes. Door open/sign placed on door: yes. Family/friend dh3 present: yes. Family/friends encouraged to stay with patient. Sitter present: Yes. 17:30 Safety checks: Items removed: yes. Door open/sign placed on door: yes. Family/friend dh3 present: yes. Family/friends encouraged to stay with patient. Sitter present: Yes. 17:45 Safety checks: Items removed: yes. Door open/sign placed on door: yes. Family/friend dh3 present: yes. Family/friends encouraged to stay with patient. Sitter present: Yes. 18:00 Safety checks: Items removed: yes. Door open/sign placed on door: yes. Family/friend dh3 present: yes. Family/friends encouraged to stay with patient. Sitter present: Yes. 18:15 Safety Checks: Personal items have been removed. The door is open or patient has been tw2 placed in a hallway bed/chair. Sitter present at this time. Safety Checks: A family member and/or friend is present and encouraged to stay. 18:30 Safety Checks: Personal items have been removed. The door is open or patient has been tw2 placed in a hallway bed/chair. A family member and/or friend is present and encouraged to stay. Sitter present at this time. 18:31 talked to Ambrosio at [facility], chart is under review, possible discharges in bd the morning. 18:45 Safety Checks: Personal items have been removed. The door is open or patient has been tw2 placed in a hallway bed/chair. A family member and/or friend is present and encouraged to stay. Sitter present at this time. 19:00 Safety Checks: Personal items have been removed. The door is open or patient has been tw2 placed in a hallway bed/chair. A family member and/or friend is present and encouraged to stay. Sitter present at this time. 19:00 Safety checks: Items removed: yes. Door open/sign placed on door: yes. Family/friend dh3 present: yes. Family/friends encouraged to stay with patient. Sitter present: Yes. 19:03 Report given to BERNA Perez. tw2 19:04 Primary Nurse role handed off by Emily Clark RN tw2 19:15 Patel Shah, RN is Primary Nurse. jb4 22:00 IV discontinued, intact, bleeding controlled. jb4 Administered Medications: No medications were administered Outcome: 22:17 Discharge ordered by . janeth 22:42 Discharged to home ambulatory, with significant other. jb4 22:42 Condition: stable 22:42 Discharge instructions given to patient, significant other, Instructed on discharge instructions, follow up and referral plans. Demonstrated understanding of instructions, follow-up care. 22:42 Patient left the ED. jb4 Signatures: Bambi Jose Corey, MD MD cha Rivera, Mary mr Rooney, Bertha, RN RN aa5 Annette Mann RN Dez Goodwin, LETI PA jr8 Emily Clark RN RN tw2 Patel Shah, BERNA RN jb4 Stefany Ott 3 Olivia Tucker RN RN ea Peltier, Brian RN BERNA bp Maritza Wells 2 Beatrice Wilson 3 Pierre Driscoll RN RN liz5 Funmilayo Alvarenga ar5 Corrections: (The following items were deleted from the chart) 06/11 21:17 19:10 Derm: Skin is intact, Skin temperature is warm rr5 rr5 06/12 03:45 03:41 Safety checks: Items removed: yes. Door open/sign placed on door: yes. ar5 Family/friend present: yes. Sitter present: Yes. ar5 04:09 03:30 Reassessment: Patient appears in no apparent distress at this time. Patient cc3 and/or family updated on plan of care and expected duration. Pain level reassessed. Patient is alert, oriented x 3, equal unlabored respirations, skin warm/dry/pink. family member at bedside. cc3 06:14 06:13 Reassessment: Patient appears in no apparent distress at this time. Patient cc3 and/or family updated on plan of care and expected duration. Pain level reassessed. Patient is alert, oriented x 3, equal unlabored respirations, skin warm/dry/pink. Patient at bedside cc3 10:38 09:45 Safety checks: Items removed: yes. Door open/sign placed on door: yes. dh3 Family/friend present: yes. Sitter present: Yes. 3 10:39 10:00 Safety checks: Items removed: yes. Door open/sign placed on door: yes. dh3 Family/friend present: yes. Sitter present: Yes. 3 10:41 10:15 Safety checks: Items removed: yes. Door open/sign placed on door: yes. dh3 Family/friend present: no. Sitter present: Yes. 3 10:42 10:30 Safety checks: Items removed: yes. Door open/sign placed on door: yes. dh3 Family/friend present: no. Sitter present: Yes. 3 10:45 10:34 Safety checks: Items removed: yes. Door open/sign placed on door: yes. dh3 Family/friend present: yes. Family/friends encouraged to stay with patient. Sitter present: Yes. 3 13:03 13:00 Safety checks: Items removed: yes. Door open/sign placed on door: yes. dh3 Family/friend present: no. Sitter present: Yes. 3
[2018-06-12 23:29] VITALS: BP 101/61; TEMP 98.9; O2SAT 98
== END 2018-06-12 22:42 | disposition home or self-care (01) ==
LOC: ER 16:16
PROC: 0JQH0ZZ Repair Left Lower Arm Subcutaneous Tissue and Fascia, Open Approach (ICD-10-PCS; principal; 2018-06-12)
DX: T42.4X2A Poisoning by benzodiazepines, intentional self-harm, initial encounter (principal); F31.9 Bipolar disorder, unspecified; S61.512A Laceration without foreign body of left wrist, initial encounter; X83.8XXA Intentional self-harm by other specified means, initial encounter; Y93.9 Activity, unspecified; Y92.9 Unspecified place or not applicable
CPT/HCPCS: 36415; 80048; 80076; 80307; 80320; 80329; 81003; 81025; 85025; 85610; 85730; 93005; 99285

== ENCOUNTER 2019-05-03 16:01 | Emergency (ER) | payer BC, OTHER ==
--- NOTE | 2019-05-03 18:06 | ER ---
Nurse's Notes [facility] Name: Brandy Bailey Age: 34 yrs Sex: Female : 1985 Arrival Date: 05/03/2019 Time: 16:04 Bed 30 Private MD: Diagnosis: Acute upper respiratory infection, unspecified Presentation: 05/03 16:27 Presenting complaint: Patient states: body aches, ear ache, sinus drainage since 04/30. sr5 Pt is 28 weeks , , no complications thus far. Taking Robitussin and Tylenol OTC. Reports 2 coworkers have the flu. Transition of care: patient was not received from another setting of care. Onset of symptoms was April 30, 2019. Care prior to arrival: Medication(s) given: Tylenol. 16:27 Method Of Arrival: Ambulatory 5 16:27 Acuity: ANA 4 sr5 17:43 Risk Assessment: Do you want to hurt yourself or someone else? Patient reports no rb1 desire to harm self or others. Initial Sepsis Screen: Does the patient meet any 2 criteria? No. Patient's initial sepsis screen is negative. Does the patient have a suspected source of infection? No. Patient's initial sepsis screen is negative. Triage Assessment: 16:28 General: Appears ill, Behavior is calm, cooperative. Pain: Denies pain. Neuro: No sr5 deficits noted. Cardiovascular: No deficits noted. Respiratory: Respiratory effort is even, unlabored, Respiratory pattern is regular, symmetrical. 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 - Social history:: Smoking status: Patient/guardian denies using tobacco, never smoked. - Ebola Screening: : Patient negative for fever greater than or equal to 101.5 degrees Fahrenheit, and additional compatible Ebola Virus Disease symptoms. Screenin:43 Abuse screen: Denies threats or abuse. Nutritional screening: No deficits noted. rb1 Tuberculosis screening: No symptoms or risk factors identified. Fall Risk None identified. Assessment: 17:43 General: Appears uncomfortable, Behavior is calm, cooperative. General: Reports feeling rb1 ill for fatigue for 2-3 days, Denies fever, had fever on April 30 but not today. Pain: Complains of pain in bodyaches Pain currently is 8 out of 10 on a pain scale. Pain began x 3 days. Neuro: Level of Consciousness is awake, alert, obeys commands, Oriented to person, place, time, situation. Cardiovascular: Capillary refill < 3 seconds is brisk in bilateral fingers. Respiratory: Reports cough that is productive, yellow sputum Airway is patent Respiratory effort is even, unlabored, Respiratory pattern is regular, symmetrical. GI: Reports diarrhea, nausea, vomiting. : No signs and/or symptoms were reported regarding the genitourinary system. EENT: Reports nasal congestion. Derm: Skin is pink, warm \T\ dry. Musculoskeletal: Range of motion: intact in all extremities. Vital Signs: 16:28 BP 117 / 80; Pulse 93; Resp 16; Temp 98.0(O); Pulse Ox 99% on R/A; Weight 67.13 kg; sr5 Height 5 ft. 9 in. (175.26 cm); Pain 0/10; 17:44 BP 120 / 80 LA (auto/reg); Pulse 86; Resp 18; Temp 98(O); Pulse Ox 98% on R/A; jp3 16:28 Body Mass Index 21.86 (67.13 kg, 175.26 cm) sr5 Vitals: 17:55 Heart Tones: 176 bpm. jp3 ED Course: 16:04 Patient arrived in ED. rg4 16:05 Flu and/or RSV swab sent to lab. jp3 16:07 [facility] kb 16:07 Gian Reeder MD is Attending Physician. kb 16:28 Triage completed. sr5 16:28 Arm band placed on right wrist. sr5 17:39 Anais Sparks, RN is Primary Nurse. rb1 17:44 Patient maintains SpO2 saturation greater than 95% on room air. jp3 17:45 Bed in low position. Call light in reach. Warm blanket given. Verbal reassurance given. jp3 Pulse ox on. NIBP on. 18:13 No provider procedures requiring assistance completed. Patient did not have IV access rb1 during this emergency room visit. Administered Medications: No medications were administered Outcome: 18:06 Discharge ordered by . kb 18:13 Discharged to home ambulatory. rb1 18:13 Condition: stable 18:13 Discharge instructions given to patient, Instructed on discharge instructions, follow up and referral plans. Demonstrated understanding of instructions, follow-up care, Prescriptions given X none 18:14 Patient left the ED. rb1 Signatures: Libby Juarez, INTERNAL CONTROLS CONSULTANT-C INTERNAL CONTROLS CONSULTANT-Anais Rose, RN RN rb1 Herman Willson RN RN sr5 Kayce Swanson rg4 Chase Vergara jp3
--- NOTE | 2019-05-03 18:06 | EDPHYS ---
Physician Documentation [facility] Name: Brandy Bailey Age: 34 yrs Sex: Female : 1985 Arrival Date: 05/03/2019 Time: 16:04 Bed 30 Private MD: ED Physician Gian Reeder HPI: 05/03 17:57 This 34 yrs old Female presents to ER via Ambulatory with complaints of Flu kb Symptoms. 18:03 The patient or guardian reports cough, that is intermittent, described as moderate, kb with no sputum, flu symptoms, low-grade fever, myalgias. 18:04 Onset: The symptoms/episode began/occurred 3 day(s) ago. Severity of symptoms: At their kb worst the symptoms were mild, moderate, in the emergency department the symptoms are unchanged. Modifying factors: The symptoms are alleviated by nothing, the symptoms are aggravated by nothing. Associated signs and symptoms: Pertinent positives: rhinorrhea, sore throat. The patient has not experienced similar symptoms in the past. The patient has not recently seen a physician. 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 - Social history:: Smoking status: Patient/guardian denies using tobacco, never smoked. - Ebola Screening: : Patient negative for fever greater than or equal to 101.5 degrees Fahrenheit, and additional compatible Ebola Virus Disease symptoms. ROS: 17:57 Neck: Negative for injury, pain, and swelling, Cardiovascular: Negative for chest pain, kb palpitations, and edema, Abdomen/GI: Negative for abdominal pain, nausea, vomiting, diarrhea, and constipation, Back: Negative for injury and pain, : Negative for injury, bleeding, discharge, and swelling, MS/Extremity: Negative for injury and deformity, Skin: Negative for injury, rash, and discoloration, Neuro: Negative for headache, weakness, numbness, tingling, and seizure. 17:57 Constitutional: Positive for body aches, chills, fatigue, fever, malaise. 17:57 ENT: Positive for rhinorrhea, sinus congestion. 17:57 Respiratory: Positive for cough, Negative for dyspnea on exertion, hemoptysis, orthopnea, pleurisy, shortness of breath, sputum production, wheezing. Exam: 17:57 Constitutional: This is a well developed, well nourished patient who is awake, alert, kb and in no acute distress. Head/Face: Normocephalic, atraumatic. ENT: Nares patent. No nasal discharge, no septal abnormalities noted. Tympanic membranes are normal and external auditory canals are clear. Oropharynx with no redness, swelling, or masses, exudates, or evidence of obstruction, uvula midline. Mucous membranes moist. Neck: Trachea midline, no thyromegaly or masses palpated, and no cervical lymphadenopathy. Supple, full range of motion without nuchal rigidity, or vertebral point tenderness. No Meningismus. Chest/axilla: Normal chest wall appearance and motion. Nontender with no deformity. No lesions are appreciated. Cardiovascular: Regular rate and rhythm with a normal S1 and S2. No gallops, murmurs, or rubs. Normal PMI, no JVD. No pulse deficits. Respiratory: Lungs have equal breath sounds bilaterally, clear to auscultation and percussion. No rales, rhonchi or wheezes noted. No increased work of breathing, no retractions or nasal flaring. Abdomen/GI: Soft, non-tender, with normal bowel sounds. No distension or tympany. No guarding or rebound. No evidence of tenderness throughout. Skin: Warm, dry with normal turgor. Normal color with no rashes, no lesions, and no evidence of cellulitis. MS/ Extremity: Pulses equal, no cyanosis. Neurovascular intact. Full, normal range of motion. Neuro: Awake and alert, GCS 15, oriented to person, place, time, and situation. Cranial nerves II-XII grossly intact. Motor strength 5/5 in all extremities. Sensory grossly intact. Cerebellar exam normal. Normal gait. Vital Signs: 16:28 BP 117 / 80; Pulse 93; Resp 16; Temp 98.0(O); Pulse Ox 99% on R/A; Weight 67.13 kg; sr5 Height 5 ft. 9 in. (175.26 cm); Pain 0/10; 17:44 BP 120 / 80 LA (auto/reg); Pulse 86; Resp 18; Temp 98(O); Pulse Ox 98% on R/A; jp3 16:28 Body Mass Index 21.86 (67.13 kg, 175.26 cm) sr5 MDM: 17:37 Patient medically screened. kb 17:58 Data reviewed: vital signs, nurses notes. Data interpreted: Pulse oximetry: on room air kb is 98 %. Interpretation: normal. Counseling: I had a detailed discussion with the patient and/or guardian regarding: the historical points, exam findings, and any diagnostic results supporting the discharge/admit diagnosis, lab results, the need for outpatient follow up, a family practitioner, to return to the emergency department if symptoms worsen or persist or if there are any questions or concerns that arise at home. 05/03 16:29 Order name: Flu; Complete Time: 17:28 kb Administered Medications: No medications were administered Disposition: 19:09 Co-signature as Attending Physician, Gian Reeder MD. rn Disposition: 05/03/19 18:06 Discharged to Home. Impression: Acute upper respiratory infection, unspecified. - Condition is Stable. - Discharge Instructions: Upper Respiratory Infection, Adult, [id number], Viral Respiratory Infection, [id number]. - Medication Reconciliation Form, Thank You Letter, Antibiotic Education, Prescription Opioid Use form. - Follow up: Private Physician; When: 2 - 3 days; Reason: Recheck today's complaints, Continuance of care, Re-evaluation by your physician. Follow up: Emergency Department; When: As needed; Reason: Worsening of condition. Signatures: Dispatcher [employer] [facility] Libby Juarez, PERFECT BINDER FEEDER OFFBEARER-C PERFECT BINDER FEEDER OFFBEARER-Ckb Gian Reeder MD MD rn Barber, Rebecca RN RN rb1 Herman Willson RN RN sr5 Corrections: (The following items were deleted from the chart) 18:14 18:06 05/03/2019 18:06 Discharged to Home. Impression: Acute upper respiratory rb1 infection, unspecified. Condition is Stable. Forms are Medication Reconciliation Form, Thank You Letter, Antibiotic Education, Prescription Opioid Use. Follow up: Private Physician; When: 2 - 3 days; Reason: Recheck today's complaints, Continuance of care, Re-evaluation by your physician. Follow up: Emergency Department; When: As needed; Reason: Worsening of condition. kb
[2019-05-03 19:51] VITALS: BP 120/80; TEMP 98; O2SAT 98
== END 2019-05-03 18:14 | disposition home or self-care (01) ==
LOC: ER 16:01
DX: J06.9 Acute upper respiratory infection, unspecified (principal)
CPT/HCPCS: 87804; 99284

== ENCOUNTER 2021-03-08 10:36 | Emergency (ER) | payer BC, OTHER ==
--- NOTE | 2021-03-08 12:02 | ER ---
Nurse's Notes [facility] Name: Brandy Bailey Age: 36 yrs Sex: Female : 1985 Arrival Date: 03/08/2021 Time: 10:40 Bed 16 Private MD: Alejandro Perez Diagnosis: Acute upper respiratory infection, unspecified Presentation: 03/08 10:57 Chief complaint: Patient states: cough, headache, fatigue, sore throat that began a ss week ago. Pt tested negative for COVID last Tuesday, but has lost her smell and taste today. Coronavirus screen: Client presents with at least one sign or symptom that may indicate coronavirus-19. Standard/surgical mask placed on the client. Provider contacted for isolation considerations. Ebola Screen: Patient denies exposure to infectious person. Patient denies travel to an Ebola-affected area in the 21 days before illness onset. Initial Sepsis Screen: Does the patient meet any 2 criteria? No. Patient's initial sepsis screen is negative. Does the patient have a suspected source of infection? No. Patient's initial sepsis screen is negative. Risk Assessment: Do you want to hurt yourself or someone else? Patient reports no desire to harm self or others. Onset of symptoms was March 01, 2021. 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 - Social history:: Smoking status: Patient denies any tobacco usage or history of. Screenin:58 Abuse screen: Denies threats or abuse. Nutritional screening: No deficits noted. tw2 Tuberculosis screening: No symptoms or risk factors identified. Fall Risk None identified. Assessment: 12:00 Reassessment: pt states "can we just go home and someone call me with the results". pt tw2 notified that we do not call with results and if she wants to be discharged she can call back for results. provider notified. pt agreeable. 12:20 Reassessment: Patient appears in no apparent distress at this time. No changes from tw2 previously documented assessment. Patient and/or family updated on plan of care and expected duration. Pain level reassessed. Patient is alert, oriented x 3, equal unlabored respirations, skin warm/dry/pink. Vital Signs: 10:57 BP 107 / 46; Pulse 90; Resp 16; Temp 98.5(TE); Pulse Ox 97% on R/A; Weight 58.97 kg; ss Height 5 ft. 9 in. (175.26 cm); Pain 0/10; 10:57 Body Mass Index 19.20 (58.97 kg, 175.26 cm) ED Course: 10:40 Patient arrived in ED. as 10:40 Alejandro Perez is Private Physician. as 10:44 Bed in low position. Call light in reach. Pulse ox on. NIBP on. tw2 10:57 Elijah Hartmann NP is PHCP. pm1 10:57 Manjinder Mejia MD is Attending Physician. pm1 10:58 Emily Clark, BERNA is Primary Nurse. tw2 11:01 Triage completed. ss 11:01 Arm band placed on right wrist. ss 12:20 No provider procedures requiring assistance completed. Patient did not have IV access tw2 during this emergency room visit. Administered Medications: No medications were administered Outcome: 12:01 Discharge ordered by . pm1 12:23 Discharged to home ambulatory. tw2 12:23 Condition: stable 12:23 Discharge instructions given to patient, Instructed on discharge instructions, follow up and referral plans. medication usage, Demonstrated understanding of instructions, follow-up care, medications, Prescriptions given X 1. 12:23 Patient left the ED. tw2 Signatures: Jasmin Alfonso Shelby, RN RN Elijah Hartmann, [employer] SAFETY ENGINEER pm1 Emily Clark RN RN tw2 Corrections: (The following items were deleted from the chart) 12:22 12:00 Reassessment: pt states "can we just go home and someone call me with the tw2 results". pt notified that we do not call with results and if she wants to be discharged she can call back for results. provider notified. tw2
--- NOTE | 2021-03-08 12:02 | EDPHYS ---
Physician Documentation [facility] Name: Brandy Bailey Age: 36 yrs Sex: Female : 1985 Arrival Date: 03/08/2021 Time: 10:40 Bed 16 Private MD: Alejandro Perze ED Physician Manjinder Mejia HPI: 03/08 11:46 This 36 yrs old Female presents to ER via Ambulatory with complaints of r/o pm1 covid. 11:46 The patient or guardian reports cough, . Onset: The symptoms/episode began/occurred 7 pm1 day(s) ago. Severity of symptoms: in the emergency department the symptoms are actually worse. Modifying factors: The symptoms are alleviated by nothing, the symptoms are aggravated by nothing. Associated signs and symptoms: Pertinent positives: Headache, fatigue,sore throat, Pertinent negatives: chest pain, diarrhea, fever, vomiting. The patient has not recently seen a physician. Patient to call Covid test on Tuesday and it was negative. Patient is presenting ER to rule out Covid and have her daughter evaluated for Covid also. 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 - Social history:: Smoking status: Patient denies any tobacco usage or history of. ROS: 11:46 Cardiovascular: Negative for chest pain, palpitations, and edema. pm1 11:46 Abdomen/GI: Negative for abdominal pain, nausea, vomiting, diarrhea, and constipation, Back: Negative for injury and pain, : Negative for injury, bleeding, discharge, and swelling, MS/Extremity: Negative for injury and deformity, Skin: Negative for injury, rash, and discoloration. 11:46 Constitutional: Positive for body aches, Negative for fever, poor PO intake. 11:46 ENT: Positive for sore throat. 11:46 Respiratory: Positive for cough, Negative for shortness of breath, sputum production, wheezing. 11:46 Neuro: Positive for headache, Negative for numbness, tingling. 11:46 All other systems are negative. Exam: 11:46 Constitutional: This is a well developed, well nourished patient who is awake, alert, pm1 and in no acute distress. Head/Face: Normocephalic, atraumatic. 11:46 Back: No spinal tenderness. No costovertebral tenderness. Full range of motion. Skin: Warm, dry with normal turgor. Normal color with no rashes, no lesions, and no evidence of cellulitis. MS/ Extremity: Pulses equal, no cyanosis. Neurovascular intact. Full, normal range of motion. 11:46 ENT: Exam is negative for acute changes, Ear canal(s): no acute changes, TM's: no acute changes, Mouth: no acute changes, Lips: normal, moist, Oral mucosa: normal, pink and intact, moist. 11:46 Cardiovascular: Exam negative for acute changes, Rate: normal, Rhythm: regular, Pulses: no pulse deficits are appreciated. 11:46 Respiratory: Exam negative for acute changes, respiratory distress, shortness of breath, Breath sounds: are clear throughout. 11:46 Abdomen/GI: Exam negative for acute changes, Inspection: abdomen appears normal, Palpation: abdomen is soft and non-tender, in all quadrants. 11:46 Neuro: Exam negative for acute changes, Orientation: is normal, Mentation: is normal, Motor: is normal, moves all fours. Vital Signs: 10:57 BP 107 / 46; Pulse 90; Resp 16; Temp 98.5(TE); Pulse Ox 97% on R/A; Weight 58.97 kg; ss Height 5 ft. 9 in. (175.26 cm); Pain 0/10; 10:57 Body Mass Index 19.20 (58.97 kg, 175.26 cm) ss MDM: 10:57 Patient medically screened. pm1 12:00 Refusal of service: The patient/guardian displays adequate decision making capability pm1 and despite a detailed discussion of alternatives, benefits, risks, and consequences refuses: Patient does not want to wait for swab results and would like to go home now. 12:00 Data reviewed: vital signs. Data interpreted: Pulse oximetry:. pm1 03/08 11:45 Order name: Flu; Complete Time: 15:39 pm1 03/08 11:45 Order name: Strep; Complete Time: 15:39 pm1 03/08 11:45 Order name: Droplet/Contact Precautions; Complete Time: 12:12 pm1 03/08 11:45 Order name: Labs collected and sent; Complete Time: 12:12 pm1 03/08 11:45 Order name: O2 Per Protocol; Complete Time: 12:12 pm1 Administered Medications: No medications were administered Disposition: 14:00 Co-signature as Attending Physician, Manjinder Mejia MD I agree with the assessment and kdr plan of care. Disposition Summary: 03/08/21 12:01 Discharge Ordered Location: Home pm1 Problem: new pm1 Symptoms: are unchanged pm1 Condition: Stable pm1 Diagnosis - Acute upper respiratory infection, unspecified pm1 Followup: pm1 - With: Emergency Department - When: As needed - Reason: Worsening of condition Followup: pm1 - With: Private Physician - When: 2 - 3 days - Reason: Recheck today's complaints, Continuance of care, Re-evaluation by your physician Discharge Instructions: - Discharge Summary Sheet pm1 - Upper Respiratory Infection, Adult pm1 Forms: - Medication Reconciliation Form pm1 - Thank You Letter pm1 - Antibiotic Education pm1 - Prescription Opioid Use pm1 - Work release form eb Prescriptions: - Tessalon Perles 100 mg Oral Capsule - take 1 capsule by ORAL route every 8 hours As needed; 15 capsule; Refills: 0, pm1 Product Selection Permitted Signatures: Dispatcher [employer] EDManjinder Jackson MD MD [facility] Annette Mann RN RN Elijah Stubbs, ENGLISH LANGUAGE LEARNER TEACHER ENGLISH LANGUAGE LEARNER TEACHER pm1
[2021-03-08 12:27] VITALS: BP 107/46; TEMP 98.5; O2SAT 97
== END 2021-03-08 12:23 | disposition home or self-care (01) ==
LOC: ER 10:36
DX: J06.9 Acute upper respiratory infection, unspecified (principal); Z20.822 Contact with and (suspected) exposure to COVID-19
CPT/HCPCS: 87070; 87081; 87804 ×2; 99283; U0003